=== PATIENT | male | born 1985 | race Caucasian/White ===

== ENCOUNTER 2025-03-21 14:11 | Outpatient (CLI) | payer MEDICAID, SELFPAY ==
[2025-03-21 09:32] LABS: HCT 46.0 % (40.0-50.0); HGB 15.5 g/dL (13.5-17.5); MCH 28.5 pg (27.0-33.0); MCHC 33.7 % (32.0-36.0); MCV 85 fL (80-95); MPV 8.7 fL (8.0-11.0); Platelet Count 283 10^3/uL (130-400); RBC 5.44 10^6/uL (4.36-5.78); RDW 13.0 % (11.8-14.1); RDW-SD 39.5 fL; WBC 5.54 10^3/uL (4.4-10.8)
[2025-03-21 09:41] LABS: Glucose Negative (Negative)
[2025-03-21 10:29] LABS: Hemoglobin A1C 5.6 % (<5.7)
[2025-03-21 10:46] LABS: ALT 27 U/L (16-63); AST 18 U/L (15-37); Albumin 4.3 g/dL (3.4-5.0); Alkaline Phosphatase 57 U/L (46-116); Anion Gap 9.3 mmol/L (3-11); BUN 20 mg/dL (7-18); Bilirubin, Total 0.6 mg/dL (0.2-1.0); CO2 28.7 mmol/L (21.0-32.0); Calcium 9.5 mg/dL (8.5-10.1); Calculated LDL 138 mg/dL (<100); Chloride 102 mmol/L (98-107); Cholesterol 223 mg/dL (<200); Estimated GFR 96.97 (mL/min/1.73m2); Glucose 107 mg/dL (74-106); HDL Cholesterol 40 mg/dL (>or=40); Potassium 4.1 mmol/L (3.5-5.1); Sodium 140 mmol/L (136-145); TSH 1.71 uIU/mL (0.36-3.74); Total Protein 8.4 g/dL (6.4-8.2); Triglyceride 227 mg/dL (<150); Vitamin D 25 Total 22 ng/mL (30-100)
[2025-03-21 17:35] LABS: T3,Free 4.6 pg/mL (2.8-5.3)
[2025-03-21 18:22] LABS: PSA, Screening 0.3 ng/mL (<=2.5)
== END 2025-03-21 14:12 | disposition home or self-care (01) ==
LOC: LBO 14:11
PROVIDERS: Visit Provider Physician Assistant
DX: R35.89 Other polyuria (principal); Z13.220 Encounter for screening for lipoid disorders
CPT/HCPCS: 36415; 80053; 80061; 82306; 84153; 85027; 81003; 83036; 84154; 84439; 84443; 84481